=== PATIENT | male | born 1975 | race Caucasian/White ===

== ENCOUNTER → 2023-09-18 07:42 | Outpatient (REF) | payer BC, SELFPAY | LOC: HWRAD 07:42 | PROVIDERS: ATTENDING PHYSICIAN Family Medicine | DX: R79.89 Other specified abnormal findings of blood chemistry (principal) | CPT/HCPCS: 76700 ==

== ENCOUNTER → 2024-04-15 14:12 | Outpatient (REF) | payer BC, SELFPAY | LOC: UCDH 14:12 | PROVIDERS: ATTENDING PHYSICIAN Physician Assistant Medical; FAMILY PHYSICIAN Family Medicine | DX: M25.571 Pain in right ankle and joints of right foot (principal) | CPT/HCPCS: 73610 ==